=== PATIENT | male | born 1965 | race Caucasian/White ===

== ENCOUNTER 2019-05-12 23:04 | Inpatient (IN) | payer SELFPAY ==
[~2019-05-12] VITALS: Ht 175.3 cm; Wt 90.7 kg
--- NOTE | ~2019-05-12 | EC ---
PATIENT:ALESSIA MARTINEZ DATE OF SERVICE: 05/13/19 SEX: M MEDICAL RECORD: [id number] DATE OF : 63 LOCATION:[facility] AGE OF PATIENT: 54 ADMISSION DATE: 05/13/19 REFERRING PHYSICIAN: INTERPRETING PHYSICIAN: ERIC HERNANDEZ MD ECHOCARDIOGRAM REPORT ECHO CHARGES 4 ECHO COMPLETE Date: 05/14/19 CLINICAL DIAGNOSIS: CVA VS TIA ECHOCARDIOGRAPHIC MEASUREMENTS (adult normal given) AC root (d.<3.7cm) 2.2 cm LV Septum d (<1.2 cm> 1.3 cm Valve Excursion 1.3 cm LV Septum (systole) 1.4 cm Left Atria (s.<4.0cm> 3.2 cm LVPW d(<1.2cm) 1.2 cm RV (d.<2.3cm) 3.2 cm LVPW (sytole) 1.5 cm LV diastole(<5.6CM) 4.1 cm MV E-F(>70mm/sec) cm LV systole 2.9 cm LVOT Diameter 1.9 cm MV exc.(>10mm) cm Est.ejection fraction (50-75%) % DOPPLER: LVIT cm/sec A 67 cm/sec E 71 cm/sec LA cm/sec RVSP 18.2 mmHg LVOT 141 cm/sec AOP1/2T m/s Asc. Ao 139 cm/sec RVOT 75 cm/sec RA cm/sec PA 96 cm/sec AV Gradient Peak 7.7 mmHg AV Mean 4.4 mmHg AV Area 3.0 cm MV Gradient Peak 4.5 mmHg MV Mean 1.4 mmHg MV Area cm COMMENTS: Entrepreneurship Program Director: Kim OSUNA Account Clerk: Cameron Gutierrez TAPE# PACS Pericardial Effusion N DATE OF SERVICE: FINDINGS: 1. Left ventricular chamber size is within normal limits. Left ventricular systolic function is normal. Overall ejection fraction estimated at 60%. 2. Left atrium is within normal limits. Right atrium and right ventricular chamber sizes are mildly dilated. 3. Valvular structures have normal structure and motion. 4. Doppler interrogation reveals only trace to mild tricuspid regurgitation, no other valvular insufficiency or stenosis. Pulmonary systolic pressure is ECHOCARDIOGRAM REPORT [id number] ALESSIA MARTINEZ estimated 18 mmHg. 5. No evidence of pericardial effusion or left ventricular thrombus. TRANSINT:[id number] Voice Confirmation ID: [id number] DOCUMENT ID: [id number] ERIC HERNANDEZ MD CC: [id number] DICTATION DATE: 05/14/19 1244 ELECTRICAL MAINTENANCE ENGINEER: 05/14/19 1252 ADM IN [place] [id number] [place] [address]
[2019-05-12 23:26] LABS: HEMATOCRIT 43.9 % (42.0-54.0); HEMOGLOBIN 15.9 g/dL (13.5-17.5); LYMPHOCYTES 46.6 % (15-50); MCHC 36.2 g/dL (31.0-37.0); MCV 96.7 fL (80.0-100.0); MEAN PLATELET VOLUME 9.8 fL (7.4-10.4); NEUTROPHILS 43.8 % (40-80); PLATELET COUNT 146 10x3/uL (130-400); RBC 4.54 10x6/uL (4.20-6.10); RDW 12.6 % (11.5-14.5); WBC 8.7 10x3/uL (4.8-10.8)
[2019-05-12 23:37] LABS: INR 1.15 (0.85-1.17); PROTIME 14.2 SECONDS (11.6-15.0)
[2019-05-12 23:38] LABS: APTT 27.7 SECONDS (22.8-39.4)
[2019-05-12 23:42] LABS: ALBUMIN 3.7 g/dL (3.4-5.0); ALKALINE PHOSPHATASE 62 U/L (46-116); ALT (SGPT) 45 U/L (10-68); BILIRUBIN - TOTAL 0.29 mg/dL (0.2-1.3); CALC OSMOLALITY 283 mosm/kg (275-300); CALCIUM 8.6 mg/dL (8.5-10.1); CARBON DIOXIDE 29.5 mmol/L (21.0-32.0); CHLORIDE - SERUM 104 mmol/L (98-107); CREATININE - SERUM 0.8 mg/dL (0.6-1.3); GLUCOSE 96 mg/dL (74-106); POTASSIUM - SERUM 3.4 mmol/L (3.5-5.1); PROTEIN - SERUM 7.7 g/dL (6.4-8.2); SODIUM 142 mmol/L (136-145); UREA NITROGEN 15 mg/dL (7-18); eGFR NON AFRICAN AMERICAN > 90 mL/min (90-120)
[2019-05-12 23:46] VITALS: BP 145/92
[2019-05-13] VITALS (7 sets, daily range): BP systolic 130–154; BP diastolic 81–95; Ht 175.3 cm; Wt 90.7 kg
[2019-05-13 00:14] LABS: CKMB 0.9 U/L (0.0-3.6); CREATINE KINASE 84 UL (21-232); MAGNESIUM - SERUM 1.7 mg/dL (1.8-2.4); TROPONIN-I < 0.017 ng/mL (0.000-0.060)
--- NOTE | 2019-05-13 08:24 | NUR ---
AWAKE AND ALERT. ORIENTED X3. NO C/O AT THIS TIME. SITTING UP IN BED EATING BREAKFAST. SIGNIFICANT OTHER AT BEDSIDE. LUNGS ARE CLEAR BILATERALLY, NO COUGH NOTED. SKIN IS INTACT WITHOUT REDNESS. DROOP NOTED TO LEFT SIDE OF FACE AND LEFT ARM WEAKNESS NOTED. LEFT HAND SL PATETN WITHOUT REDNESS AT INSERTION SITE. DENIES NEEDS.
--- NOTE | 2019-05-13 09:30 | NUR ---
ATE MOST OF BREAKFAST. SITTING UP IN CHAIR AT BEDSIDE. VISITOR AT BEDSIDE. DENIES NEEDS.
[2019-05-13 10:28] LABS: BASOPHILS 0.2 % (0-2); EOSINOPHILS 2.3 % (0-7); HEMATOCRIT 45.8 % (42.0-54.0); HEMOGLOBIN 16.2 g/dL (13.5-17.5); IMMATURE GRANULOCYTES 0.2 % (0-5); MCH 34.6 pg (26.0-34.0); MCHC 35.4 g/dL (31.0-37.0); MCV 97.9 fL (80.0-100.0); MEAN PLATELET VOLUME 10.3 fL (7.4-10.4); MONOCYTES 5.7 % (2-11); NEUTROPHILS 54.6 % (40-80); PLATELET COUNT 155 10x3/uL (130-400); RBC 4.68 10x6/uL (4.20-6.10)
[2019-05-13 10:31] LABS: WBC 6.5 10x3/uL (4.8-10.8)
--- NOTE | 2019-05-13 11:20 | NUR ---
OFF UNIT VIA WC TO MRI.
--- NOTE | 2019-05-13 11:56 | NUR ---
RETURNED FROM MRI. DENIES NEEDS. VOIDED WITHOUT DIFFICULTY.
[2019-05-13 12:02] LABS: CKMB 0.7 U/L (0.0-3.6); CREATINE KINASE 75 UL (21-232); TROPONIN-I < 0.017 ng/mL (0.000-0.060)
[2019-05-13 16:49] LABS: CKMB 0.3 U/L (0.0-3.6); CREATINE KINASE 81 UL (21-232); TROPONIN-I < 0.017 ng/mL (0.000-0.060)
--- NOTE | 2019-05-13 18:10 | NUR ---
ATE MOST OF SUPPER. SHOWERED WITH FAMILY ASSISTANCE. DENIES NEEDS.NO CHANGES NOTED.
[2019-05-13 23:00] LABS: CREATINE KINASE 82 UL (21-232)
[2019-05-13 23:06] LABS: TROPONIN-I < 0.017 ng/mL (0.000-0.060)
[2019-05-14 04:00] VITALS: BP 103/80
[2019-05-14 06:10] LABS: ALBUMIN 3.4 g/dL (3.4-5.0); ALKALINE PHOSPHATASE 60 U/L (46-116); ALT (SGPT) 38 U/L (10-68); BILIRUBIN - TOTAL 0.31 mg/dL (0.2-1.3); CARBON DIOXIDE 27.1 mmol/L (21.0-32.0); CHLORIDE - SERUM 105 mmol/L (98-107); CHOL - HDL RATIO 5.1 ratio (2.3-4.9); CHOLESTEROL, TOTAL 138 mg/dL (0-200); CREATININE - SERUM 0.6 mg/dL (0.6-1.3); GLUCOSE 94 mg/dL (74-106); HDL CHOLESTEROL 27 mg/dL (32-96); LDL CHOLESTEROL 93 mg/dL (0-100); LDL-HDL RATIO 3.4 ratio (1.5-3.5); PROTEIN - SERUM 7.1 g/dL (6.4-8.2); SODIUM 140 mmol/L (136-145); TRIGLYCERIDE 94 mg/dL (30-200); eGFR NON AFRICAN AMERICAN > 90 mL/min (90-120)
[2019-05-14 06:15] LABS: CALC OSMOLALITY 277 mosm/kg (275-300); UREA NITROGEN 9 mg/dL (7-18)
[2019-05-14 06:42] LABS: BASOPHILS 0.3 % (0-2); HEMATOCRIT 45.4 % (42.0-54.0); IMMATURE GRANULOCYTES 0.1 % (0-5); LYMPHOCYTES 40.1 % (15-50); MCH 34.5 pg (26.0-34.0); MCHC 35.2 g/dL (31.0-37.0); MCV 97.8 fL (80.0-100.0); MEAN PLATELET VOLUME 10.7 fL (7.4-10.4); MONOCYTES 9.5 % (2-11); PLATELET COUNT 162 10x3/uL (130-400); RBC 4.64 10x6/uL (4.20-6.10); WBC 7.5 10x3/uL (4.8-10.8)
--- NOTE | 2019-05-14 07:25 | NUR ---
AWAKE AND ALERT. ORIENTED X3. C/O SHARP PAINS TO LEFT SIDE OF NECK. TELEMETRY SHOWS SB 49. HEART RATE REGULAR. NEURO CHECKS WNL. DROOP TO LEFT SIDE OF FACE IS IMPROVED FROM YESTERDAY. LUNGS ARE CLEAR BILATERALLY, NO COUGH NOTED. SKIN IS INTACT WITHOUT REDNESS. SL TO RIGHT FOREARM IS PATENT WITHOUT REDNESS AT INSERTION SITE. SIGNIFICANT OTHER AT BEDSIDE. WILL MONITOR.
[2019-05-14 08:24] VITALS: BP 117/78
--- NOTE | 2019-05-14 10:23 | NUR ---
ATE MOST OF BREAKFAST. REPORTS NECK PAIN IMPROVED SLIGHTLY. UP AMBULATED IN HALLWAY IWTH SIGNIFICANT OTHER. DENIES NEEDS.
[2019-05-14] MEDS ORDERED: ASPIRIN325 MG PO (14:55)
[2019-05-14] MEDS ORDERED: Nicoderm [PBKC] TRANSDERM (14:55)
[2019-05-14] MEDS ORDERED: LISINOPRIL5 MG PO (14:55)
[2019-05-14] MEDS ORDERED: PRAVACHOL20 MG PO (14:56)
[2019-05-14 15:45] VITALS: BP 125/80
--- NOTE | 2019-05-14 16:16 | MORECARE ---
CASE MANAGEMENT DISCHARGE SUMMARY PATIENT: ALESSIA MARTINEZ UNIT: [id number] ADM DATE: 05/13/19 AGE: 54 : 63 SEX: M ROOM/BED: D.2206 AUTHOR: SHERICE MONGE PHYSICIAN: REFERRING PHYSICIAN: REYNOLD SHUKLA MD DATE OF SERVICE: 05/14/19 Discharge Plan Patient Name: ALESSIA MARTINEZ Facility: [facility]:[place] : 1965 Planned Disposition: Home Anticipated Discharge Date: Discharge Date: Expected LOS: Initial Reviewer: [email or web address] Initial Review Date: 05/13/2019 Generated: 05/14/19 5:15 pm Patient Name: ALESSIA MARTINEZ Page [id number] at 1616 All edits/amendments must be made on the electronic document DICTATION DATE: 05/14/191614 PET SITTING: LOGAN 05/14/191614 RPT#: [id number] NE DATE: STATUS: ADM IN [facility] [address] [place] [address] END OF REPORT
--- NOTE | 2019-05-14 16:24 | MORECARE ---
CASE MANAGEMENT DISCHARGE SUMMARY PATIENT: ALESSIA MARTINEZ UNIT: [id number] ADM DATE: 05/13/19 AGE: 54 : 63 SEX: M ROOM/BED: D.2206 AUTHOR: SHERICE MONGE PHYSICIAN: REFERRING PHYSICIAN: REYNOLD SHUKLA MD DATE OF SERVICE: 05/14/19 Discharge Plan Patient Name: ALESSIA MARTINEZ Facility: [facility]:[place] : 1965 Planned Disposition: Home Anticipated Discharge Date: Discharge Date: Expected LOS: Initial Reviewer: [email or web address] Initial Review Date: 05/13/2019 Generated: 05/14/19 5:24 pm Comments DCP- Discharge Planning Updated by [email or web address]: Gris Garcia on 05/14/19 3:[address] met with patient and to assess discharge planning needs. he denies any needs or dme. his will take him home, he is independent and feels safe to go home. CM to follow and assist as needed Last DP export: 05/14/19 3:16 pm Patient Name: ALESSIA MARTINEZ Page [id number] at 1624 All edits/amendments must be made on the electronic document DICTATION DATE: 05/14/191623 LOCUM TENENS: LOGAN 05/14/19 1624 RPT#: [id number] DC DATE: STATUS: ADM IN [facility] [address] [place] [address] END OF REPORT
--- NOTE | 2019-05-14 16:24 | NUR ---
DISCHARGED TO HOME AMBULATORY WITH FAMILY. DISCHARGE INSTRUCTIONS GIVEN BOTH VERBALLY AND WRITTEN. ALL QUESTIONS ANSWERED. PATIEENT AND SIGNIFICANT OTHER VERBALIZED UNDERSTANDING OF SAME. NEEDED PRESCRIPTIONS ESCRIBED AND GIVEN TO PATIENT. SL TO RIGHT HAND D/C WITH CATHETER INTACT. ALL BELONGINGS WITH PATIENT.
== END 2019-05-14 16:26 | disposition home or self-care (01) | DRG 69 ==
LOC: D.ER 23:04 → OBSVTIME 05-13 01:11 → D.MS 05-13 01:11
PROVIDERS: Emergency Medicine; ADMIT Internal Medicine Nephrology; ATTEND Internal Medicine Nephrology
DX: G45.9 Transient cerebral ischemic attack, unspecified (principal); F17.213 Nicotine dependence, cigarettes, with withdrawal; Z68.42 Body mass index [BMI] 45.0-49.9, adult; E87.6 Hypokalemia; E83.42 Hypomagnesemia; E86.0 Dehydration; E03.9 Hypothyroidism, unspecified; Z72.89 Other problems related to lifestyle; F14.90 Cocaine use, unspecified, uncomplicated; E56.9 Vitamin deficiency, unspecified

== ENCOUNTER 2020-04-24 08:10 | Day surgery (SDC) | payer OTHER ==
[2020-04-22 09:49] LABS: HEMATOCRIT 47.8 % (42.0-54.0); HEMOGLOBIN 16.6 g/dL (13.5-17.5); MCH 34.8 pg (26.0-34.0); MCHC 34.7 g/dL (31.0-37.0); MCV 100.2 fL (80.0-100.0); MEAN PLATELET VOLUME 9.4 fL (7.4-10.4); RBC 4.77 10x6/uL (4.20-6.10); RDW 12.6 % (11.5-14.5); WBC 10.5 10x3/uL (4.8-10.8)
[2020-04-22 09:53] LABS: CALC OSMOLALITY 273 mosm/kg (275-300); CALCIUM 9.1 mg/dL (8.5-10.1); CARBON DIOXIDE 30.5 mmol/L (21.0-32.0); CHLORIDE - SERUM 102 mmol/L (98-107); CREATININE - SERUM 0.7 mg/dL (0.6-1.3); GLUCOSE 98 mg/dL (74-106); POTASSIUM - SERUM 3.9 mmol/L (3.5-5.1); SODIUM 137 mmol/L (136-145); UREA NITROGEN 12 mg/dL (7-18); eGFR NON AFRICAN AMERICAN > 90 mL/min (90-120)
--- NOTE | 2020-04-22 11:53 | NUR ---
T- 98.1, POX- 98% HR- 58, RR- 16 BP LA-112/75
[~2020-04-24] VITALS: Ht 175.3 cm; Wt 87.1 kg
[~2020-04-24 08:10] MED LIST: ASPIRIN325 MG PO; LISINOPRIL5 MG PO; Nicoderm [PBKC] TRANSDERM; PRAVACHOL20 MG PO
[2020-04-24 09:19] VITALS: BP 91/53; Ht 175.3 cm; Wt 87.1 kg
[2020-04-24] MEDS ORDERED: HYDROCODON-ACE1 EA10 PO (14:13)
[2020-04-24] MEDS ORDERED: MEDROL DOSE PACK4 MG PO (14:14)
--- NOTE | 2020-04-24 15:11 | NUR ---
1500-RECD TO ROOM FROM PACU.
--- NOTE | 2020-04-24 16:37 | NUR ---
1615-discharge instructions reviewed with . 1630-up to bathroom with stand by assist. unable to void. ivf continue, 2nd can of lemon ouzinkie soda given.
--- NOTE | 2020-04-24 17:01 | NUR ---
1700-UP TO BATHROOM, VOIDS FREELY. IV D/C. DRESSES. 1705-DC HOME VIA WHEELCHAIR WITH . HAS DISCHARGE INSTRUCTIONS AND PAIN PRESCRIPTION. REMINDED STEROID DOSE PACK SENT TO [facility] AND TO START IN THE MORNING.
--- NOTE | 2020-05-01 11:01 | OP ---
PATIENT NAME: ALESSIA MARTINEZ MEDICAL RECORD: [id number] :63 LOCATION:[facility] ADMISSION DATE: SURGEON: REJI SHORT MD DATE OF OPERATION: 04/24/2020 DATE OF SERVICE: 04/24/2020 PREOPERATIVE DIAGNOSES: Lumbar spinal stenosis and foraminal stenosis L4-L5 and L5-S1 on the right. POSTOPERATIVE DIAGNOSES: Lumbar spinal stenosis and foraminal stenosis L4-L5 and L5-S1 on the right. PROCEDURE: Right L4-L5 and L5-S1 medial facetectomy and foraminotomy with METRx retractor. SURGEON: Reji Short MD RN SURGERY ICU: Donell Gant APN DESCRIPTION AND TECHNIQUE: After induction of general endotracheal anesthesia, the patient was rolled prone on a Lemuel frame. Lumbar spine was prepped and draped in usual sterile fashion. Fluoroscopic x-ray and spinal needle localized the L4-L5 interspace on the right side. After infiltration of 1:100,000 epinephrine and 1% lidocaine, a stab incision was created with a #11 blade. Series of dilators were used to advance a METRx retractor over the L4-L5 interspace on the right side. Level was confirmed with fluoroscopic x-ray. A microscope and Midas Jaleel drill were used to perform a laminectomy, medial facetectomy, and foraminotomy at L4-L5 on the right. Hypertrophied ligamentum flavum was removed with Cloward rongeurs. Following this, the foraminotomies were carried out at L4-L5 and L5-S1 on the right. The L4, L5 and S1 nerve roots were decompressed well. Meticulous hemostasis was maintained throughout the wound. Wound was irrigated with copious amounts of Ancef irrigant solution. The retractor was removed. The fascia was closed with 2-0 Vicryl suture, the subdermal layer was closed with 3-0 Vicryl suture. The skin was closed with stefanie. A sterile dressing was applied to the wound. The patient was awakened in good condition and taken to recovery. All counts were reported as correct. Estimated blood loss was minimal. TRANSINT:[id number] Voice Confirmation ID: [id number] DOCUMENT ID: [id number] REJI SHORT MD at 1105 CC: [id number] DICTATION DATE: 04/30/20 5671 STUDENT ADVISOR: 04/30/20 1546 [facility] 04/24/20 [facility] [address] [facility] [place] [address]
== END 2020-04-24 17:05 | disposition home or self-care (01) ==
LOC: D.OPS 08:10 → D.PAN 11:30 → D.OPS 11:30
PROVIDERS: Anesthesiology; ATTEND Neurological Surgery
DX: M54.16 Radiculopathy, lumbar region (principal); M48.061 Spinal stenosis, lumbar region without neurogenic claudication; E78.5 Hyperlipidemia, unspecified; I10 Essential (primary) hypertension; F17.200 Nicotine dependence, unspecified, uncomplicated